=== PATIENT | female | born 1960 | race Caucasian/White ===

== ENCOUNTER → 2023-09-23 | Outpatient (CLI) | payer BC, MEDICARE ==
[2023-09-23 11:05] LABS: Partial Thromboplastin Time 22.7 sec (22.0-30.0); Prothrombin Time 10.5 sec (10.0-12.5)
[2023-09-23 14:57] LABS: Basophils # (A) 0.02 X 10*3/uL (0.00-0.10); Basophils % (A) 0.3 %; Eosinophils # (A) 0.05 X 10*3/uL (0.04-0.35); Eosinophils % (A) 0.8 %; HCT 40.7 % (37.2-46.3); Lymphocytes # (A) 1.67 X 10*3/uL (0.90-5.00); Lymphocytes % (A) 26.1 %; MCH 28.6 pg (27.0-32.0); MCHC 31.9 g/dL (32.0-37.0); MCV 89.5 FL (80.0-97.0); Mean Platelet Volume 11.2 FL (9.5-12.2); Monocytes # (A) 0.35 X 10*3/uL (0.20-1.00); Monocytes % (A) 5.5 %; NRBC Per 100 WBC 0 X 10*3/uL (0.00-0.01); Neutrophils # (A) 4.27 X 10*3/uL (1.80-7.70); Neutrophils % (A) 66.7 %; Platelet Count 246 X 10*3/uL (140-440); RBC 4.55 X 10*6/uL (4.10-5.20); RDW 14.9 % (11.5-14.5)
[2023-09-23 15:24] LABS: T4, Free (Free Thyroxine) 1.68 ng/dL (0.80-1.80)
[2023-09-23 22:10] LABS: Appearance,Urine Cloudy (Clear); Bilirubin,Urine Negative (Negative); Blood,Urine Negative (Negative); Color,Urine Yellow (Yellow); Ketones,Urine Negative (Negative); Nitrite,Urine Negative (Negative); Specific Gravity,Urine 1.016 (1.001-1.030)
[2023-09-23 23:08] LABS: Amorphous Sediment,Urine Present (None Seen); Bacteria,Urine None Seen (None Seen)
== END | disposition home or self-care (01) ==
LOC: LABWHC1 09:18
DX: Z01.810 Encounter for preprocedural cardiovascular examination (principal); E03.9 Hypothyroidism, unspecified; D64.4 Congenital dyserythropoietic anemia; N18.9 Chronic kidney disease, unspecified; R30.0 Dysuria; Z79.01 Long term (current) use of anticoagulants; Z79.891 Long term (current) use of opiate analgesic
CPT/HCPCS: 36415; 81001; 84439; 84443; 85025; 85610; 85730; 87070

== ENCOUNTER → 2024-03-28 | Outpatient (CLI) | payer BC, MEDICARE ==
[2024-03-28 14:46] LABS: HCT 45.6 % (37.2-46.3); HGB 14.8 g/dL (12.0-15.0); MCHC 32.5 g/dL (32.0-37.0); MCV 86.4 FL (80.0-97.0); Mean Platelet Volume 12.4 FL (9.5-12.2); NRBC Per 100 WBC 0 X 10*3/uL (0.00-0.01); Platelet Count 200 X 10*3/uL (140-440); RBC 5.28 X 10*6/uL (4.10-5.20); RDW 12.9 % (11.5-14.5); WBC 5.13 X 10*3/uL (4.50-10.00)
[2024-03-28 15:34] LABS: ALT 12 U/L (8-44); AST 21 U/L (13-35); Albumin 4.5 g/dL (3.8-4.9); Albumin/Globulin Ratio 1.96 Ratio (1.60-3.17); Alkaline Phosphatase 134 U/L (41-126); BUN/Creat Ratio 12.67 Ratio (12.00-20.00); Calcium 9.8 mg/dL (8.7-10.3); Chloride 105 mmol/L (96-109); Chol/HDL Ratio 3.62 Ratio; Globulin 2.3 g/dL (1.6-3.3); Glucose 95 mg/dL (70-110); LDL Cholesterol,Calculated 121.6 mg/dL (0.0-131.0); Potassium 3.8 mmol/L (3.5-5.5); Sodium 143 mmol/L (135-145); Total Bilirubin 0.5 mg/dL (0.3-1.2); Total Protein 6.8 g/dL (6.2-8.2)
== END | disposition home or self-care (01) ==
LOC: LABWHC1 07:55
DX: Z13.1 Encounter for screening for diabetes mellitus (principal); Z13.29 Encounter for screening for other suspected endocrine disorder; E66.9 Obesity, unspecified; E78.5 Hyperlipidemia, unspecified; Z68.26 Body mass index [BMI] 26.0-26.9, adult
CPT/HCPCS: 36415; 80053; 80061; 83036; 84443; 85027